=== PATIENT | female | born 1995 | race Caucasian/White ===

== ENCOUNTER 2019-12-20 14:38 | Outpatient (CLI) | payer OTHER | END 2019-12-20 23:59 | disposition home or self-care (01) | LOC: CVU 14:38 | PROVIDERS: ATTEND Internal Medicine Cardiovascular Disease | DX: I37.1 Nonrheumatic pulmonary valve insufficiency (principal); R07.89 Other chest pain | CPT/HCPCS: 93306; 93356 ==